=== PATIENT | female | born 1985 | race Caucasian/White ===

== ENCOUNTER 2018-05-19 11:36 | Emergency (ER) | payer OTHER ==
[~2018-05-19] VITALS: Ht 162.6 cm; Wt 90.7 kg
[~2018-05-19 11:36] MED LIST: CELEXA 20 MG TA20 MG; IBUPROFEN 600600 M1 PO; NORCO 5-325 TA1 EACH PO; ZOFRAN ODT4 MG PO; ZOLOFT 50 MG TA50 M1
[2018-05-19] MEDS ORDERED: TRAZODONE 150150 M1 PO (11:45)
[2018-05-19] MEDS ORDERED: VENLAFAXINE HC225 MG PO (11:46)
[2018-05-19 11:54] LABS: URINE BILIRUBIN NEGATIVE (Negative); URINE BLOOD TRACE (Negative); URINE CLARITY CLEAR; URINE COLOR YELLOW; URINE GLUCOSE-RANDOM NEGATIVE (Negative); URINE KETONES NEGATIVE (Negative); URINE LEUKOCYTES-REFLEX TRACE (Negative); URINE NITRITE-REFLEX NEGATIVE (Negative); URINE PROTEIN NEGATIVE (Negative); URINE UROBILINOGEN 0.2 E.U./dl (0.2-1.0)
[2018-05-19 12:04] LABS: SQUAMOUS >10 Many /LPF (0-3)
[2018-05-19 12:05] LABS: CASTS None Seen /LPF (None Seen); CRYSTALS None Seen /LPF (None Seen); MUCUS None Seen strn/LPF (None Seen); URINE RBC 3-10 Few /HPF (0-2); URINE WBC-REFLEX 0-5 Rare /HPF (0-5)
[2018-05-19 12:05] LABS: ABSOLUTE EOSINOPHILS 0.1 thou/uL (0.0-0.7); ABSOLUTE LYMPHOCYTES 1.5 thou/uL (0.8-5.3); ABSOLUTE MONOCYTES 0.3 thou/uL (0.0-1.2); ABSOLUTE NEUTROPHILS 3.4 thou/uL (1.6-8.1); BASOPHILS 0.9 %; EOSINOPHILS 1.7 %; HEMATOCRIT 37.7 % (37.0-47.0); HEMOGLOBIN 12.7 gm/dL (12.0-15.0); LYMPHOCYTES 27.8 %; MCH 28.7 pg (26.0-34.0); MCHC 33.6 g/dL (28.0-37.0); MCV 85.6 fL (80.0-100.0); MONOCYTES 5.9 %; MPV 6.8 fl. (7.2-11.1); NUCLEATED RBCS 0 /100WBC; PLATELET COUNT* 321 thou/uL (150-400); POLYS 63.7 %; RBC 4.41 mil/uL (4.20-5.00); RDW-CV 13.3 % (10.5-14.5); WBC 5.3 thou/uL (4.0-11.0)
[2018-05-19 12:20] LABS: ALBUMIN 3.2 g/dL (3.4-5.0); CALCIUM 8.6 mg/dL (8.5-10.1); CREATININE 0.9 mg/dL (0.6-1.3); POTASSIUM 4.3 mmol/L (3.5-5.1); TOTAL BILIRUBIN 0.3 mg/dL (<0.1-1.0); TOTAL PROTEIN 6.9 g/dL (6.4-8.2)
[2018-05-19] MEDS ORDERED: HYDROCODONE-AP1 EAC6 PO (13:43)
[2018-05-19] MEDS ORDERED: ONDANSETRON HCL4 M2 PO (13:43)
[2018-05-19 14:30] VITALS: BP 162/103
== END 2018-05-19 14:22 | disposition home or self-care (01) ==
LOC: M.ERS 11:36
PROVIDERS: Physician Assistant
DX: R10.11 Right upper quadrant pain (principal); R11.2 Nausea with vomiting, unspecified; Z87.442 Personal history of urinary calculi

== ENCOUNTER 2019-05-18 15:33 | Emergency (ER) | payer OTHER ==
[~2019-05-18] VITALS: Ht 165.1 cm; Wt 90.7 kg
[~2019-05-18 15:33] MED LIST changes: +HYDROCODONE-AP1 EAC6 PO; +ONDANSETRON HCL4 M2 PO; +TRAZODONE 150150 M1 PO; +VENLAFAXINE HC225 MG PO
[2019-05-18] MEDS ORDERED: XANAX 0.25 MG0.25 MG PO (15:46)
[2019-05-18] MEDS ORDERED: SEROQUEL 25 MG25 MG PO (15:47)
[2019-05-18] MEDS ORDERED: NORCO 5-325 TA1 EAC1 PO (16:32)
[2019-05-18 17:01] VITALS: BP 165/107
== END 2019-05-18 17:03 | disposition home or self-care (01) ==
LOC: M.ERS 15:33
DX: S63.8X1A Sprain of other part of right wrist and hand, initial encounter (principal); Z87.442 Personal history of urinary calculi; Z79.899 Other long term (current) drug therapy; W17.89XA Other fall from one level to another, initial encounter; Y93.44 Activity, trampolining; Y92.89 Other specified places as the place of occurrence of the external cause; Y99.8 Other external cause status

== ENCOUNTER 2020-09-08 19:10 | Emergency (ER) | payer OTHER ==
[~2020-09-08] VITALS: Ht 162.6 cm; Wt 90.7 kg
[~2020-09-08 19:10] MED LIST changes: +NORCO 5-325 TA1 EAC1 PO; +SEROQUEL 25 MG25 MG PO; +XANAX 0.25 MG0.25 MG PO
[2020-09-08] MEDS ORDERED: TRAMADOL 50 MG50 MG PO (19:32)
[2020-09-08 20:11] VITALS: BP 155/97
== END 2020-09-08 20:11 | disposition home or self-care (01) ==
LOC: M.ERS 19:10
DX: T23.221A Burn of second degree of single right finger (nail) except thumb, initial encounter (principal); N83.209 Unspecified ovarian cyst, unspecified side; Z87.442 Personal history of urinary calculi; X08.8XXA Exposure to other specified smoke, fire and flames, initial encounter; Y93.89 Activity, other specified; Y92.89 Other specified places as the place of occurrence of the external cause; Y99.8 Other external cause status